=== PATIENT | male | born 1980 | race Hispanic/Latino ===

== ENCOUNTER 2019-01-10 09:28 | Emergency (ER) | payer OTHER ==
[2019-01-10 10:08] LABS: APPEARANCE,URINE CLEAR (CLEAR); BILIRUBIN,URINE NEGATIVE (NEGATIVE); COLOR,URINE YELLOW (YELLOW); GLUCOSE, URINE (UA) 250 mg/dL (NEGATIVE); KETONES,URINE NEGATIVE (NEGATIVE); LEUKOCYTE ESTERASE ,URINE NEGATIVE (NEGATIVE); NITRATE,URINE NEGATIVE (NEGATIVE); OCCULT BLOOD,URINE TRACE-INTACT (NEGATIVE); PROTEIN,URINE 30 mg/dL (NEGATIVE)
[2019-01-10 10:14] LABS: BACTERIA,URINE Rare /HPF (None Seen); RBC,URINE 0-1 /HPF (0-1); SQUAMOUS EPITHELIAL CELL,UR Rare /HPF (0-2); WBC,URINE 0-1 /HPF (0-1)
[2019-01-10] MEDS ORDERED: LIDOCAINE HCL-MPF 1% 2ML VIAL ONE (10:30)
[2019-01-10] MEDS ORDERED: CEFTRIAXONE SODIUM 1 GM ONE (10:31)
[2019-01-10] MEDS ORDERED: KETOROLAC TROMETHAMINE 30MG/ML ONE (10:31)
== END 2019-01-10 10:47 | disposition home or self-care (01) ==
LOC: EDH 09:28
DX: S39.012A Strain of muscle, fascia and tendon of lower back, initial encounter (principal); N10 Acute pyelonephritis; R50.9 Fever, unspecified; X58.XXXA Exposure to other specified factors, initial encounter; Y93.89 Activity, other specified; Y92.89 Other specified places as the place of occurrence of the external cause; Y99.8 Other external cause status
CPT/HCPCS: 81001; 96372 ×2; 99284; J0696; J1885; J3490